=== PATIENT | male | born 1970 | race African-American/Black ===

== ENCOUNTER 2017-10-18 19:19 | Emergency (ER) | payer SELFPAY ==
[~2017-10-18] VITALS: Ht 165.1 cm; Wt 73.0 kg
[2017-10-18] MEDS ORDERED: ONDANSETRON HCL 4MG/2ML VIAL IV STA (20:27)
[2017-10-18] MEDS ORDERED: MORPHINE SULFATE 4 MG/ML CPJ (NOT FOR IM USE) IV STA (20:27)
[2017-10-18] MEDS ORDERED: SODIUM CHLORIDE 0.9% 1,000 ML IV ONE (20:27)
[2017-10-18] MEDS ORDERED: DIPHENHYDRAMINE 50MG/ML VIAL IV STA (20:27)
[2017-10-18 20:54] LABS: HEMOGLOBIN. 11.6 g/dL (14.0-18.0); MEAN CORPUSCULAR HEMOGLOBIN 27.3 pg (28.0-32.0); MEAN CORPUSCULAR VOLUME 82.1 fL (80.0-94.0); MEAN PLATELET VOLUME 7.4 fl (7.4-10.4); PLATELET 369 x1000/uL (130-400); RED BLOOD CELL COUNT 4.26 mill/uL (4.7-6.1); RED CELL DISTRIBUTION WIDTH 13.8 % (11.6-14.6)
[2017-10-18 21:01] LABS: INR 1.2
[2017-10-18 21:04] LABS: CHLORIDE 99 mEq/L (98-107)
[2017-10-18 21:06] LABS: ETHANOL BLOOD < 10 mg/dL
[2017-10-18 21:25] LABS: PLATELET ESTIMATE NORMAL
[2017-10-18 22:48] LABS: CLARITY URINE CLOUDY (CLEAR); COLOR URINE YELLOW (YELLOW); KETONES URINE TRACE (NEGATIVE); LEUKOCYTE ESTERASE URINE NEGATIVE (NEGATIVE); NITRITE URINE NEGATIVE (NEGATIVE); OCCULT BLOOD URINE NEGATIVE (NEGATIVE); PH URINE 5.5 (4.5-8.0); PROTEIN URINE 2+ (NEGATIVE); SPECIFIC GRAVITY URINE 1.014 (1.005-1.030); UROBILINOGEN URINE 0.2 E.U./dL (0.2-1.0)
[2017-10-18 23:06] LABS: *AMPHETAMINES SCREEN URINE NEGATIVE (NEGATIVE); *BARBITURATES SCREEN URINE NEGATIVE (NEGATIVE); *BENZODIAZEPINES SCREEN URINE NEGATIVE (NEGATIVE); *COCAINE SCREEN URINE NEGATIVE (NEGATIVE); CANNABINOID URINE SCREEN NEGATIVE (NEGATIVE); METHADONE URINE SCREEN NEGATIVE (NEGATIVE); OPIATES URINE SCREEN PRESUMTIVE POSITIVE (NEGATIVE); PHENCYCLIDINE URINE SCREEN NEGATIVE (NEGATIVE)
[2017-10-18] MEDS ORDERED: TAMSULOSIN HCL 0.4MG SR CAPSULE PO NR (23:44)
[2017-10-18] MEDS ORDERED: LEVOFLOXACIN 500MG TABLET PO ONE (23:45)
[2017-10-19 01:40] VITALS: BP 145/90
== END 2017-10-19 01:47 | disposition home or self-care (01) ==
LOC: ER 19:25
DX: N39.0 Urinary tract infection, site not specified (principal); I10 Essential (primary) hypertension
CPT/HCPCS: 36415; 74176; 80053; 80305; 81003; 83605; 83690; 85025; 85610; 87086; 96361; 96374; 96375; 99285; G0482; J1200; J2270; J2405; J7030; Z7610